=== PATIENT | male | born 2000 | race Caucasian/White ===

== ENCOUNTER 2020-08-22 12:32 | Inpatient (IN) | payer MEDICAID, OTHER ==
[~2020-08-22] VITALS: Ht 182.9 cm; Wt 71.3 kg
[2020-08-22 13:53] LABS: BASOPHILS % (AUTO) 0.4 % (0.0-2.0); EOSINOPHILS % (AUTO) 2.8 % (1.0-6.0); HEMATOCRIT 44.1 % (41-53); HEMOGLOBIN 15.1 g/dL (13.5-17.5); LYMPHOCYTES # (AUTO) 1.6 K/uL (1.0-4.8); MEAN CORPUSCULAR HEMOGLOBIN 30.6 pg (26.0-34.0); MEAN CORPUSCULAR HGB CONC 34.2 G/dL (31.0-37.0); MEAN CORPUSCULAR VOLUME 89 fL (80-100); MONOCYTES # (AUTO) 0.6 K/uL (0.1-1.0); MONOCYTES % (AUTO) 12.5 % (2.0-9.0); NEUTROPHILS # (AUTO) 2.4 K/uL (1.8-7.7); NEUTROPHILS % (AUTO) 50.3 % (40.0-70.0); PLATELET COUNT (AUTO) 196 K/uL (150-450); RED BLOOD CELL COUNT(AUTO) 4.94 MIL/uL (4.50-5.90); RED CELL DISTRIBUTION WIDTH 12.5 % (11.5-14.5)
[2020-08-22 13:57] LABS: ANION GAP 6 mmol/L (8-16); CALCIUM, TOTAL 8.9 mg/dL (8.8-10.5); CARBON DIOXIDE 33 mmol/L (22-29); CHLORIDE 101 mmol/L (98-107); CREATININE 1.03 mg/dL (0.60-1.30); GLOMERULAR FILTR. RATE CALC > 60 mL/min (>60); GLUCOSE,RANDOM 72 mg/dL (70-110); POTASSIUM 3.2 mmol/L (3.5-5.1); SODIUM SERUM 140 mmol/L (136-145); UREA NITROGEN, BLOOD 17 mg/dL (7-18)
[2020-08-22 14:02] LABS: ALANINE AMINOTRANSFERASE 34 U/L (12-78); ALBUMIN 4.1 g/dL (3.4-5.0); ALKALINE PHOSPHATASE 116 U/L (46-116); ASPARTATE AMINOTRANSFERASE 27 U/L (15-37); BILIRUBIN,TOTAL 0.4 mg/dL (0.1-1.0); TOTAL PROTEIN, SERUM 7.4 g/dL (6.4-8.2)
[2020-08-22 14:29] LABS: GLUCOSE,POINT OF CARE 109 MG/DL (70-110)
[2020-08-22 18:02] LABS: COVID AG,FIA SOURCE NASOPHARYNGEAL
[2020-08-22] MEDS: LORazepam 2 MG TABLET PO PRN (19:27)
[2020-08-23] MEDS ORDERED: MAGNESIUM HYDROXIDE SUSPENSION 30 ML UDCUP PO PRN (08:00)
[2020-08-23] MEDS ORDERED: DOCUSATE SODIUM 100 MG CAPSULE PO PRN (08:00)
[2020-08-23] MEDS ORDERED: GuaiFENesin/D-METHORPHAN [SUGAR-FREE] 200-20MG/10 ML SYRUP UDCUP PO PRN (08:00)
[2020-08-23] MEDS ORDERED: CloNIDine HCL 0.1 MG TABLET PO PRN (08:00)
[2020-08-23] MEDS ORDERED: ACETAMINOPHEN 325 MG TABLET PO PRN (08:00)
[2020-08-23] MEDS ORDERED: PETROLATUM,WHITE 28 GM JELLY TP PRN (08:00)
[2020-08-23] MEDS ORDERED: ALBUTEROL SULFATE HFA 90 MCG/PUFF 8 GM INHALER IH PRN (08:00)
[2020-08-23] MEDS ORDERED: NICOTINE 14 MG/24 HOUR PATCH TD PRN (08:00)
[2020-08-23] MEDS ORDERED: ONDANSETRON HCL 4 MG TABLET PO PRN (08:00)
[2020-08-23] MEDS ORDERED: LOPERAMIDE HCL 2 MG CAPSULE PO PRN (08:00)
[2020-08-23] MEDS ORDERED: IBUPROFEN 400 MG TABLET PO PRN (08:00)
[2020-08-23] MEDS ORDERED: MAG HYDROX/AL HYDROX/SIMETH ES 30 ML SUSPENSION UDCUP PO PRN (08:00)
[2020-08-23] MEDS: LORazepam 2 MG TABLET PO PRN ×2 (08:38→17:29)
[2020-08-23 08:49] LABS: AMPHET/METH SCREEN,URINE NEGATIVE (NEGATIVE); BARBITURATE SCREEN, URINE NEGATIVE (NEGATIVE); BENZODIAZEPINES SCREEN,URINE NEGATIVE (NEGATIVE); CANNABINOID SCREEN,URINE POSITIVE (NEGATIVE); COCAINE SCREEN,URINE NEGATIVE (NEGATIVE); METHADONE SCREEN, URINE NEGATIVE (NEGATIVE); OPIATE SCREEN,URINE NEGATIVE (NEGATIVE)
[2020-08-23 08:51] LABS: PHENCYCLIDINE SCREEN,URINE NEGATIVE (NEGATIVE)
[2020-08-23] MEDS ORDERED: DiphenhydrAMINE HCL 50 MG/ML VIAL IM ONE ×2 (09:15→18:45)
[2020-08-23] MEDS ORDERED: LORazepam 2 MG/ML VIAL IM ONE ×2 (09:15→18:45)
[2020-08-23] MEDS ORDERED: HALOPERIDOL LACTATE 5 MG/ML VIAL IM ONE ×2 (09:15→18:45)
[2020-08-23 11:08] LABS: GLUCOSE,POINT OF CARE 271 MG/DL (70-110)
[2020-08-23] MEDS ORDERED: GLUCAGON,HUMAN RECOMBINANT 1 MG VIAL IM PRN (15:45)
[2020-08-23 16:05] VITALS: BP 110/68
[2020-08-23] MEDS ORDERED: POTASSIUM CHLORIDE 20 MEQ ER TABLET PO ONE (16:15)
[2020-08-23] MEDS: HALOPERIDOL 5 MG TABLET PO PRN (16:51)
[2020-08-23] MEDS: INSULIN LISPRO 100 UNITS/ML SQ PRN (16:54)
[2020-08-23] MEDS: INSULIN GLARGINE,HUM.REC.ANLOG 100 UNITS/ML SQ SCH (21:21)
[2020-08-24 06:25] LABS: GLUCOMETER DEV NAME(LOC) BV3N.; GLUCOSE,POINT OF CARE 154 MG/DL (70-110)
[2020-08-24] MEDS: INSULIN LISPRO 100 UNITS/ML SQ PRN ×4 (06:41→21:09)
[2020-08-24] MEDS ORDERED: CloNIDine HCL 0.1 MG TABLET PO PRN (07:45)
[2020-08-24] MEDS ORDERED: MAG HYDROX/AL HYDROX/SIMETH ES 30 ML SUSPENSION UDCUP PO PRN (07:45)
[2020-08-24] MEDS ORDERED: PETROLATUM,WHITE 28 GM JELLY TP PRN (07:45)
[2020-08-24] MEDS ORDERED: ALBUTEROL SULFATE HFA 90 MCG/PUFF 8 GM INHALER IH PRN (07:45)
[2020-08-24] MEDS ORDERED: LOPERAMIDE HCL 2 MG CAPSULE PO PRN (07:45)
[2020-08-24] MEDS ORDERED: MAGNESIUM HYDROXIDE SUSPENSION 30 ML UDCUP PO PRN (07:45)
[2020-08-24] MEDS ORDERED: IBUPROFEN 400 MG TABLET PO PRN (07:45)
[2020-08-24] MEDS ORDERED: ONDANSETRON HCL 4 MG TABLET PO PRN (07:45)
[2020-08-24] MEDS ORDERED: ACETAMINOPHEN 325 MG TABLET PO PRN (07:45)
[2020-08-24] MEDS ORDERED: GuaiFENesin/D-METHORPHAN [SUGAR-FREE] 200-20MG/10 ML SYRUP UDCUP PO PRN (07:45)
[2020-08-24] MEDS ORDERED: DOCUSATE SODIUM 100 MG CAPSULE PO PRN (07:45)
[2020-08-24] MEDS: LORazepam 2 MG TABLET PO PRN ×4 (07:59→21:06)
[2020-08-24 08:20] VITALS: BP 154/68
[2020-08-24] MEDS: HALOPERIDOL 5 MG TABLET PO PRN ×2 (10:09→16:44)
[2020-08-24 11:24] LABS: GLUCOMETER DEV NAME(LOC) BV3N.; GLUCOSE,POINT OF CARE 257 MG/DL (70-110)
[2020-08-24] MEDS: QUEtiapine FUMARATE 200 MG TABLET PO SCH ×2 (12:04→21:06)
[2020-08-24 16:30] VITALS: BP 119/81
[2020-08-24 17:17] LABS: GLUCOMETER DEV NAME(LOC) BV3N.; GLUCOSE,POINT OF CARE 249 MG/DL (70-110)
[2020-08-24] MEDS: NICOTINE 14 MG/24 HOUR PATCH TD PRN (18:02)
[2020-08-24] MEDS: INSULIN GLARGINE,HUM.REC.ANLOG 100 UNITS/ML SQ SCH (21:09)
[2020-08-24] MEDS: ZOLPIDEM TARTRATE 10 MG TABLET PO PRN (21:34)
[2020-08-24 21:46] LABS: GLUCOMETER DEV NAME(LOC) BV3N.; GLUCOSE,POINT OF CARE 255 MG/DL (70-110)
[2020-08-25 06:08] VITALS: BP 115/64
[2020-08-25 06:32] LABS: GLUCOMETER DEV NAME(LOC) BV3N.; GLUCOSE,POINT OF CARE 235 MG/DL (70-110)
[2020-08-25] MEDS: INSULIN LISPRO 100 UNITS/ML SQ PRN (06:34)
[2020-08-25 08:50] VITALS: BP 142/65
[2020-08-25] MEDS: LORazepam 2 MG TABLET PO PRN ×3 (09:03→17:41)
[2020-08-25] MEDS: QUEtiapine FUMARATE 200 MG TABLET PO SCH ×2 (09:03→20:35)
[2020-08-25 09:46] LABS: GLUCOMETER DEV NAME(LOC) BV3N.; GLUCOSE,POINT OF CARE 427 MG/DL (70-110)
[2020-08-25] MEDS ORDERED: INSULIN LISPRO 100 UNITS/ML SQ ONE (10:00)
[2020-08-25] MEDS ORDERED: DEXTROSE 50%-WATER 25 GM/50 ML SYRINGE IVP PRN (10:00)
[2020-08-25] MEDS ORDERED: INSULIN LISPRO 100 UNITS/ML SQ PRN (10:00)
[2020-08-25] MEDS: INSULIN GLARGINE,HUM.REC.ANLOG 100 UNITS/ML SQ SCH ×2 (10:12→16:44)
[2020-08-25 12:01] LABS: GLUCOMETER DEV NAME(LOC) BV3N.; GLUCOSE,POINT OF CARE 67 MG/DL (70-110)
[2020-08-25] MEDS: HALOPERIDOL 5 MG TABLET PO PRN ×2 (13:08→17:24)
[2020-08-25] MEDS: NICOTINE 14 MG/24 HOUR PATCH TD PRN (13:59)
[2020-08-25 14:21] LABS: GLUCOMETER DEV NAME(LOC) BV3N.; GLUCOSE,POINT OF CARE 44 MG/DL (70-110)
[2020-08-25 14:34] LABS: GLUCOMETER DEV NAME(LOC) BV3N.; GLUCOSE,POINT OF CARE 72 MG/DL (70-110)
[2020-08-25 16:09] VITALS: BP 105/68
[2020-08-25 16:38] LABS: GLUCOMETER DEV NAME(LOC) BV3N.; GLUCOSE,POINT OF CARE 85 MG/DL (70-110)
[2020-08-25 20:03] LABS: GLUCOMETER DEV NAME(LOC) BV3N.; GLUCOSE,POINT OF CARE 185 MG/DL (70-110)
[2020-08-26] MEDS ORDERED: GLUCAGON,HUMAN RECOMBINANT 1 MG VIAL IM PRN (02:00)
[2020-08-26 04:56] VITALS: BP 124/72
[2020-08-26 06:03] LABS: GLUCOMETER DEV NAME(LOC) BV3N.; GLUCOSE,POINT OF CARE 155 MG/DL (70-110)
[2020-08-26] MEDS: INSULIN LISPRO 100 UNITS/ML SQ PRN ×4 (06:14→21:00)
[2020-08-26] MEDS: LORazepam 2 MG TABLET PO PRN ×2 (07:50→16:27)
[2020-08-26] MEDS: QUEtiapine FUMARATE 200 MG TABLET PO SCH ×2 (08:01→20:55)
[2020-08-26] MEDS: INSULIN GLARGINE,HUM.REC.ANLOG 100 UNITS/ML SQ SCH ×2 (08:07→16:46)
[2020-08-26 08:19] LABS: GLUCOMETER DEV NAME(LOC) BV3N.; GLUCOSE,POINT OF CARE 101 MG/DL (70-110)
[2020-08-26 08:44] VITALS: BP 132/79
[2020-08-26] MEDS: HALOPERIDOL 5 MG TABLET PO PRN ×2 (09:33→16:27)
[2020-08-26 11:39] LABS: GLUCOMETER DEV NAME(LOC) BV3N.; GLUCOSE,POINT OF CARE 352 MG/DL (70-110)
[2020-08-26 16:26] VITALS: BP 125/75
[2020-08-26 17:00] LABS: GLUCOMETER DEV NAME(LOC) BV3N.; GLUCOSE,POINT OF CARE 233 MG/DL (70-110)
[2020-08-26] MEDS ORDERED: DiphenhydrAMINE HCL 50 MG/ML VIAL ONE (19:07)
[2020-08-26] MEDS ORDERED: HALOPERIDOL LACTATE 5 MG/ML VIAL ONE (19:07)
[2020-08-26] MEDS ORDERED: LORazepam 2 MG/ML VIAL ONE (19:07)
[2020-08-26] MEDS ORDERED: HALOPERIDOL LACTATE 5 MG/ML VIAL IM ONE (19:30)
[2020-08-26] MEDS ORDERED: LORazepam 2 MG/ML VIAL IM ONE (19:30)
[2020-08-26] MEDS ORDERED: DiphenhydrAMINE HCL 50 MG/ML VIAL IM ONE (19:30)
[2020-08-26 21:19] LABS: GLUCOMETER DEV NAME(LOC) BV3N.; GLUCOSE,POINT OF CARE 173 MG/DL (70-110)
[2020-08-27 03:41] VITALS: BP 132/80
[2020-08-27 06:22] LABS: GLUCOMETER DEV NAME(LOC) BV3N.; GLUCOSE,POINT OF CARE 89 MG/DL (70-110)
[2020-08-27] MEDS: HALOPERIDOL 5 MG TABLET PO PRN ×3 (08:00→16:44)
[2020-08-27 08:17] LABS: GLUCOMETER DEV NAME(LOC) BV3N.; GLUCOSE,POINT OF CARE 325 MG/DL (70-110)
[2020-08-27] MEDS: QUEtiapine FUMARATE 200 MG TABLET PO SCH (08:25)
[2020-08-27] MEDS: INSULIN GLARGINE,HUM.REC.ANLOG 100 UNITS/ML SQ SCH ×2 (08:25→16:51)
[2020-08-27 09:23] VITALS: BP 122/67
[2020-08-27] MEDS: LORazepam 2 MG TABLET PO PRN ×3 (11:09→21:05)
[2020-08-27] MEDS: INSULIN LISPRO 100 UNITS/ML SQ PRN ×3 (11:27→21:08)
[2020-08-27 11:33] LABS: GLUCOMETER DEV NAME(LOC) BV3N.; GLUCOSE,POINT OF CARE 316 MG/DL (70-110)
[2020-08-27 16:29] VITALS: BP 126/81
[2020-08-27 19:17] LABS: GLUCOMETER DEV NAME(LOC) BV3N.; GLUCOSE,POINT OF CARE 133 MG/DL (70-110)
[2020-08-27] MEDS ORDERED: QUEtiapine FUMARATE 200 MG TABLET PO SCH (21:00)
[2020-08-27] MEDS: ZOLPIDEM TARTRATE 10 MG TABLET PO PRN (21:05)
[2020-08-27 21:17] LABS: GLUCOMETER DEV NAME(LOC) BV3N.; GLUCOSE,POINT OF CARE 339 MG/DL (70-110)
[2020-08-28 03:49] VITALS: BP 123/78
[2020-08-28 06:14] LABS: GLUCOMETER DEV NAME(LOC) BV3N.; GLUCOSE,POINT OF CARE 207 MG/DL (70-110)
[2020-08-28] MEDS: INSULIN LISPRO 100 UNITS/ML SQ PRN ×3 (06:28→16:39)
[2020-08-28] MEDS: LORazepam 2 MG TABLET PO PRN ×2 (08:00→12:00)
[2020-08-28] MEDS: INSULIN GLARGINE,HUM.REC.ANLOG 100 UNITS/ML SQ SCH ×2 (08:37→16:37)
[2020-08-28 08:47] VITALS: BP 120/60
[2020-08-28] MEDS: HALOPERIDOL 5 MG TABLET PO PRN (09:20)
[2020-08-28 09:50] LABS: GLUCOMETER DEV NAME(LOC) BV3N.; GLUCOSE,POINT OF CARE 196 MG/DL (70-110)
[2020-08-28 11:24] LABS: GLUCOMETER DEV NAME(LOC) BV3N.; GLUCOSE,POINT OF CARE 225 MG/DL (70-110)
[2020-08-28 13:18] LABS: GLUCOMETER DEV NAME(LOC) BV3N.; GLUCOSE,POINT OF CARE 381 MG/DL (70-110)
[2020-08-28] MEDS ORDERED: QUET200T PO (14:09)
[2020-08-28] MEDS ORDERED: INSLAN SQ (14:10)
[2020-08-28 15:21] LABS: GLUCOMETER DEV NAME(LOC) BV3N.; GLUCOSE,POINT OF CARE 85 MG/DL (70-110)
[2020-08-28 16:12] VITALS: BP 125/79
[2020-08-28 19:27] LABS: GLUCOMETER DEV NAME(LOC) BV3N.; GLUCOSE,POINT OF CARE 395 MG/DL (70-110)
== END 2020-08-28 17:09 | disposition home or self-care (01) | DRG 750 ==
LOC: EMS 12:36 → B3A 08-23 12:25
DX: F25.0 Schizoaffective disorder, bipolar type (principal); R45.851 Suicidal ideations; E11.65 Type 2 diabetes mellitus with hyperglycemia; K90.0 Celiac disease; Z20.822 Contact with and (suspected) exposure to COVID-19; E87.6 Hypokalemia; F19.10 Other psychoactive substance abuse, uncomplicated; Z72.89 Other problems related to lifestyle; F12.10 Cannabis abuse, uncomplicated
CPT/HCPCS: 80053; 82962; 83036; 85025; 99285; G0480; J1200; J1630; J1815; J2060

== ENCOUNTER 2020-09-05 09:54 | Inpatient (IN) | payer MEDICAID, OTHER ==
[~2020-09-05] VITALS: Ht 175.3 cm; Wt 74.4 kg
[~2020-09-05 09:54] MED LIST: INSLAN SQ; QUET200T PO
[2020-09-05 10:24] LABS: BASOPHILS % (AUTO) 0.3 % (0.0-2.0); EOSINOPHILS % (AUTO) 3.4 % (1.0-6.0); HEMATOCRIT 43.8 % (41-53); HEMOGLOBIN 14.7 g/dL (13.5-17.5); LYMPHOCYTES # (AUTO) 1.3 K/uL (1.0-4.8); LYMPHOCYTES % (AUTO) 28.2 % (22.0-44.0); MEAN CORPUSCULAR HEMOGLOBIN 30.3 pg (26.0-34.0); MEAN CORPUSCULAR HGB CONC 33.5 G/dL (31.0-37.0); MEAN CORPUSCULAR VOLUME 91 fL (80-100); MONOCYTES # (AUTO) 0.3 K/uL (0.1-1.0); MONOCYTES % (AUTO) 6.5 % (2.0-9.0); NEUTROPHILS # (AUTO) 2.9 K/uL (1.8-7.7); NEUTROPHILS % (AUTO) 61.6 % (40.0-70.0); PLATELET COUNT (AUTO) 208 K/uL (150-450); RED BLOOD CELL COUNT(AUTO) 4.84 MIL/uL (4.50-5.90); RED CELL DISTRIBUTION WIDTH 12.6 % (11.5-14.5)
[2020-09-05 10:33] LABS: ANION GAP 8 mmol/L (8-16); CALCIUM, TOTAL 9.1 mg/dL (8.8-10.5); CARBON DIOXIDE 26 mmol/L (22-29); CHLORIDE 98 mmol/L (98-107); CREATININE 0.85 mg/dL (0.60-1.30); GLOMERULAR FILTR. RATE CALC > 60 mL/min (>60); GLUCOSE,RANDOM 319 mg/dL (70-110); POTASSIUM 4.4 mmol/L (3.5-5.1); SODIUM SERUM 132 mmol/L (136-145); UREA NITROGEN, BLOOD 20 mg/dL (7-18)
[2020-09-05 10:39] LABS: ALANINE AMINOTRANSFERASE 33 U/L (12-78); ALBUMIN 3.9 g/dL (3.4-5.0); ALKALINE PHOSPHATASE 124 U/L (46-116); ASPARTATE AMINOTRANSFERASE 18 U/L (15-37); BILIRUBIN,TOTAL 0.2 mg/dL (0.1-1.0); TOTAL PROTEIN, SERUM 6.9 g/dL (6.4-8.2)
[2020-09-05 10:55] LABS: AMPHET/METH SCREEN,URINE NEGATIVE (NEGATIVE); BARBITURATE SCREEN, URINE NEGATIVE (NEGATIVE); BENZODIAZEPINES SCREEN,URINE NEGATIVE (NEGATIVE); CANNABINOID SCREEN,URINE POSITIVE (NEGATIVE); COCAINE SCREEN,URINE NEGATIVE (NEGATIVE); METHADONE SCREEN, URINE NEGATIVE (NEGATIVE); OPIATE SCREEN,URINE NEGATIVE (NEGATIVE)
[2020-09-05 10:56] LABS: PHENCYCLIDINE SCREEN,URINE NEGATIVE (NEGATIVE)
[2020-09-05] MEDS ORDERED: BACITRACIN 0.9 GM PACKET OINTMENT TP ONE (11:15)
[2020-09-05 12:53] LABS: GLUCOSE,POINT OF CARE 477 MG/DL (70-110)
[2020-09-05] MEDS ORDERED: INSULIN REGULAR, HUMAN 100 UNITS/ML SQ ONE (13:45)
[2020-09-05 14:52] LABS: COVID AG,FIA SOURCE NASOPHARYNGEAL
[2020-09-05] MEDS ORDERED: DiphenhydrAMINE HCL 50 MG/ML VIAL ONE (15:38)
[2020-09-05] MEDS ORDERED: LORazepam 2 MG/ML VIAL ONE (15:38)
[2020-09-05] MEDS ORDERED: HALOPERIDOL LACTATE 5 MG/ML VIAL ONE (15:38)
[2020-09-05 15:40] LABS: GLUCOSE,POINT OF CARE 219 MG/DL (70-110)
[2020-09-05] MEDS ORDERED: HALOPERIDOL LACTATE 5 MG/ML VIAL IM ONE (15:45)
[2020-09-05] MEDS ORDERED: LORazepam 2 MG/ML VIAL IM ONE (15:45)
[2020-09-05] MEDS ORDERED: DiphenhydrAMINE HCL 50 MG/ML VIAL IM ONE (15:45)
[2020-09-05] MEDS ORDERED: DEXTROSE 50%-WATER 25 GM/50 ML SYRINGE IVP PRN (17:00)
[2020-09-05 17:12] LABS: GLUCOMETER DEV NAME(LOC) 3E.C; GLUCOSE,POINT OF CARE 50 MG/DL (70-110)
[2020-09-05 17:26] VITALS: BP 105/61
[2020-09-05 17:27] LABS: GLUCOMETER DEV NAME(LOC) 3E.C; GLUCOSE,POINT OF CARE 95 MG/DL (70-110)
[2020-09-05] MEDS ORDERED: INSULIN LISPRO 100 UNITS/ML SQ ONE (20:45)
[2020-09-05 20:47] LABS: GLUCOMETER DEV NAME(LOC) 3E.C; GLUCOSE,POINT OF CARE 356 MG/DL (70-110)
[2020-09-05 22:26] LABS: GLUCOMETER DEV NAME(LOC) 3E.C; GLUCOSE,POINT OF CARE 157 MG/DL (70-110)
[2020-09-06] MEDS: INSULIN LISPRO 100 UNITS/ML SQ PRN ×4 (06:59→21:01)
[2020-09-06 07:00] LABS: FREE T4 (FREE THYROXINE) 1.08 ng/dL (0.76-1.46); THYROID STIMULATING HORMONE 0.91 uIU/mL (0.36-3.74)
[2020-09-06 07:09] LABS: GLUCOMETER DEV NAME(LOC) 3E.C; GLUCOSE,POINT OF CARE 309 MG/DL (70-110)
[2020-09-06 08:33] VITALS: BP 125/61
[2020-09-06] MEDS ORDERED: INSULIN GLARGINE,HUM.REC.ANLOG 100 UNITS/ML SQ SCH (09:00)
[2020-09-06] MEDS: BACITRACIN 28 GM OINTMENT TP SCH ×2 (09:13→16:47)
[2020-09-06] MEDS: LORazepam 2 MG TABLET PO PRN ×2 (09:32→14:14)
[2020-09-06] MEDS: HALOPERIDOL 5 MG TABLET PO PRN ×2 (10:14→14:14)
[2020-09-06] MEDS: NICOTINE 14 MG/24 HOUR PATCH TD SCH (10:15)
[2020-09-06 12:41] LABS: GLUCOMETER DEV NAME(LOC) 3E.C; GLUCOSE,POINT OF CARE 354 MG/DL (70-110)
[2020-09-06] MEDS: OLANZapine 5 MG TABLET PO SCH ×2 (13:13→16:47)
[2020-09-06 14:17] LABS: GLUCOMETER DEV NAME(LOC) 3E.C; GLUCOSE,POINT OF CARE 64 MG/DL (70-110)
[2020-09-06 16:44] LABS: GLUCOMETER DEV NAME(LOC) 3E.C; GLUCOSE,POINT OF CARE 218 MG/DL (70-110)
[2020-09-06] MEDS: QUEtiapine FUMARATE 200 MG TABLET PO SCH (20:59)
[2020-09-06 21:10] LABS: GLUCOMETER DEV NAME(LOC) 3E.C; GLUCOSE,POINT OF CARE 155 MG/DL (70-110)
[2020-09-07] MEDS: ZOLPIDEM TARTRATE 10 MG TABLET PO PRN (02:34)
[2020-09-07] MEDS: HALOPERIDOL 5 MG TABLET PO PRN ×3 (05:45→14:02)
[2020-09-07] MEDS: LORazepam 2 MG TABLET PO PRN ×3 (05:45→14:02)
[2020-09-07 06:49] LABS: GLUCOMETER DEV NAME(LOC) 3E.C; GLUCOSE,POINT OF CARE 196 MG/DL (70-110)
[2020-09-07] MEDS: INSULIN LISPRO 100 UNITS/ML SQ PRN ×3 (07:05→16:58)
[2020-09-07 08:00] VITALS: BP 132/73
[2020-09-07] MEDS: INSULIN GLARGINE,HUM.REC.ANLOG 100 UNITS/ML SQ SCH (08:24)
[2020-09-07] MEDS: OLANZapine 5 MG TABLET PO SCH ×2 (08:25→16:58)
[2020-09-07] MEDS: NICOTINE 14 MG/24 HOUR PATCH TD SCH (08:25)
[2020-09-07 12:36] LABS: GLUCOMETER DEV NAME(LOC) 3E.C; GLUCOSE,POINT OF CARE 332 MG/DL (70-110)
[2020-09-07] MEDS: BACITRACIN 28 GM OINTMENT TP SCH ×2 (13:41→19:31)
[2020-09-07 16:16] LABS: GLUCOMETER DEV NAME(LOC) 3E.C; GLUCOSE,POINT OF CARE 184 MG/DL (70-110)
[2020-09-07 16:17] VITALS: BP 118/79
[2020-09-07 16:18] VITALS: BP 118/79
[2020-09-07] MEDS: QUEtiapine FUMARATE 200 MG TABLET PO SCH (20:47)
[2020-09-07 21:06] LABS: GLUCOMETER DEV NAME(LOC) 3E.C; GLUCOSE,POINT OF CARE 126 MG/DL (70-110)
[2020-09-08] MEDS: ZOLPIDEM TARTRATE 10 MG TABLET PO PRN (00:51)
[2020-09-08] MEDS: LORazepam 2 MG TABLET PO PRN ×2 (02:31→15:29)
[2020-09-08] MEDS: HALOPERIDOL 5 MG TABLET PO PRN ×2 (02:31→15:30)
[2020-09-08] MEDS: INSULIN LISPRO 100 UNITS/ML SQ PRN ×4 (06:38→20:26)
[2020-09-08 06:42] LABS: GLUCOMETER DEV NAME(LOC) 3E.C; GLUCOSE,POINT OF CARE 252 MG/DL (70-110)
[2020-09-08 08:00] VITALS: BP 106/68
[2020-09-08] MEDS: OLANZapine 5 MG TABLET PO SCH ×2 (08:17→16:17)
[2020-09-08] MEDS: INSULIN GLARGINE,HUM.REC.ANLOG 100 UNITS/ML SQ SCH (08:20)
[2020-09-08] MEDS: NICOTINE 14 MG/24 HOUR PATCH TD SCH (08:26)
[2020-09-08] MEDS: BACITRACIN 28 GM OINTMENT TP SCH ×2 (08:27→16:17)
[2020-09-08] MEDS ORDERED: DiphenhydrAMINE HCL 50 MG/ML VIAL IM ONE (10:00)
[2020-09-08] MEDS ORDERED: LORazepam 2 MG/ML VIAL IM ONE (10:00)
[2020-09-08] MEDS ORDERED: HALOPERIDOL LACTATE 5 MG/ML VIAL IM ONE (10:00)
[2020-09-08] MEDS ORDERED: DiphenhydrAMINE HCL 50 MG/ML VIAL ONE (10:03)
[2020-09-08 12:43] LABS: GLUCOMETER DEV NAME(LOC) 3E.C; GLUCOSE,POINT OF CARE 369 MG/DL (70-110)
[2020-09-08 15:57] LABS: GLUCOMETER DEV NAME(LOC) 3E.C; GLUCOSE,POINT OF CARE 236 MG/DL (70-110)
[2020-09-08 17:17] LABS: GLUCOMETER DEV NAME(LOC) 3E.C; GLUCOSE,POINT OF CARE 254 MG/DL (70-110)
[2020-09-08 17:33] VITALS: BP 136/76
[2020-09-08] MEDS: QUEtiapine FUMARATE 200 MG TABLET PO SCH (20:25)
[2020-09-08 20:35] LABS: GLUCOMETER DEV NAME(LOC) 3E.C; GLUCOSE,POINT OF CARE 212 MG/DL (70-110)
[2020-09-09] MEDS: HALOPERIDOL 5 MG TABLET PO PRN ×4 (06:21→18:39)
[2020-09-09] MEDS: LORazepam 2 MG TABLET PO PRN ×3 (06:21→14:39)
[2020-09-09 06:22] LABS: GLUCOMETER DEV NAME(LOC) 3E.C; GLUCOSE,POINT OF CARE 264 MG/DL (70-110)
[2020-09-09] MEDS: INSULIN LISPRO 100 UNITS/ML SQ PRN ×3 (06:43→21:02)
[2020-09-09 08:00] VITALS: BP 148/101
[2020-09-09] MEDS: OLANZapine 5 MG TABLET PO SCH ×2 (08:03→16:07)
[2020-09-09] MEDS: INSULIN GLARGINE,HUM.REC.ANLOG 100 UNITS/ML SQ SCH (08:04)
[2020-09-09] MEDS: NICOTINE 14 MG/24 HOUR PATCH TD SCH (08:05)
[2020-09-09] MEDS: BACITRACIN 28 GM OINTMENT TP SCH ×2 (08:06→16:11)
[2020-09-09] MEDS ORDERED: INSULIN LISPRO 100 UNITS/ML SQ ONE (12:15)
[2020-09-09 12:21] LABS: GLUCOMETER DEV NAME(LOC) 3E.C; GLUCOSE,POINT OF CARE 529 MG/DL (70-110)
[2020-09-09 14:05] LABS: GLUCOMETER DEV NAME(LOC) 3E.C; GLUCOSE,POINT OF CARE 408 MG/DL (70-110)
[2020-09-09 14:11] VITALS: BP 136/82
[2020-09-09] MEDS ORDERED: DEXTROSE 50%-WATER 25 GM/50 ML SYRINGE IVP PRN (14:30)
[2020-09-09 14:43] LABS: GLUCOMETER DEV NAME(LOC) 3E.C; GLUCOSE,POINT OF CARE 262 MG/DL (70-110)
[2020-09-09 14:43] LABS: GLUCOMETER DEV NAME(LOC) 3E.C; GLUCOSE,POINT OF CARE 304 MG/DL (70-110)
[2020-09-09 16:09] LABS: ANION GAP 7 mmol/L (8-16); CALCIUM, TOTAL 9.1 mg/dL (8.8-10.5); CARBON DIOXIDE 28 mmol/L (22-29); CHLORIDE 102 mmol/L (98-107); CREATININE 0.96 mg/dL (0.60-1.30); GLOMERULAR FILTR. RATE CALC > 60 mL/min (>60); GLUCOSE,RANDOM 128 mg/dL (70-110); POTASSIUM 3.7 mmol/L (3.5-5.1); SODIUM SERUM 137 mmol/L (136-145); UREA NITROGEN, BLOOD 20 mg/dL (7-18)
[2020-09-09 16:21] LABS: GLUCOMETER DEV NAME(LOC) 3E.C; GLUCOSE,POINT OF CARE 118 MG/DL (70-110)
[2020-09-09 17:00] VITALS: BP 118/59
[2020-09-09 18:52] VITALS: BP 118/59
[2020-09-09] MEDS: QUEtiapine FUMARATE 200 MG TABLET PO SCH (20:52)
[2020-09-09 21:08] LABS: GLUCOMETER DEV NAME(LOC) 3E.C; GLUCOSE,POINT OF CARE 354 MG/DL (70-110)
[2020-09-09 22:49] LABS: GLUCOMETER DEV NAME(LOC) 3E.C; GLUCOSE,POINT OF CARE 198 MG/DL (70-110)
[2020-09-09] MEDS: ZOLPIDEM TARTRATE 10 MG TABLET PO PRN (23:21)
[2020-09-10] MEDS: LORazepam 2 MG TABLET PO PRN ×2 (05:41→13:57)
[2020-09-10] MEDS: HALOPERIDOL 5 MG TABLET PO PRN ×2 (05:41→13:57)
[2020-09-10 06:02] LABS: GLUCOMETER DEV NAME(LOC) 3E.C; GLUCOSE,POINT OF CARE 283 MG/DL (70-110)
[2020-09-10] MEDS: INSULIN LISPRO 100 UNITS/ML SQ PRN ×4 (06:48→21:00)
[2020-09-10] MEDS: OLANZapine 5 MG TABLET PO SCH ×2 (07:50→15:53)
[2020-09-10] MEDS: BACITRACIN 28 GM OINTMENT TP SCH ×2 (07:51→15:54)
[2020-09-10] MEDS: NICOTINE 14 MG/24 HOUR PATCH TD SCH (07:51)
[2020-09-10] MEDS ORDERED: INSULIN GLARGINE,HUM.REC.ANLOG 100 UNITS/ML SQ SCH (09:00)
[2020-09-10 09:11] VITALS: BP 110/74
[2020-09-10 10:18] LABS: GLUCOMETER DEV NAME(LOC) 3E.C; GLUCOSE,POINT OF CARE 323 MG/DL (70-110)
[2020-09-10 10:48] LABS: GLUCOMETER DEV NAME(LOC) 3E.C; GLUCOSE,POINT OF CARE 360 MG/DL (70-110)
[2020-09-10 13:16] LABS: GLUCOMETER DEV NAME(LOC) 3E.C; GLUCOSE,POINT OF CARE 226 MG/DL (70-110)
[2020-09-10 16:10] LABS: GLUCOMETER DEV NAME(LOC) 3E.C; GLUCOSE,POINT OF CARE 425 MG/DL (70-110)
[2020-09-10] MEDS ORDERED: INSULIN LISPRO 100 UNITS/ML SQ ONE (16:15)
[2020-09-10 17:00] VITALS: BP 134/69
[2020-09-10 19:42] LABS: GLUCOMETER DEV NAME(LOC) 3E.C; GLUCOSE,POINT OF CARE 219 MG/DL (70-110)
[2020-09-10] MEDS: QUEtiapine FUMARATE 200 MG TABLET PO SCH (20:51)
[2020-09-10 21:10] LABS: GLUCOMETER DEV NAME(LOC) 3E.C; GLUCOSE,POINT OF CARE 209 MG/DL (70-110)
[2020-09-11] MEDS: ZOLPIDEM TARTRATE 10 MG TABLET PO PRN (00:04)
[2020-09-11 06:39] LABS: GLUCOMETER DEV NAME(LOC) 3E.C; GLUCOSE,POINT OF CARE 339 MG/DL (70-110)
[2020-09-11] MEDS: INSULIN LISPRO 100 UNITS/ML SQ PRN ×5 (06:47→21:19)
[2020-09-11] MEDS: LORazepam 2 MG TABLET PO PRN ×2 (08:02→13:06)
[2020-09-11] MEDS: OLANZapine 5 MG TABLET PO SCH ×2 (08:02→16:28)
[2020-09-11] MEDS: HALOPERIDOL 5 MG TABLET PO PRN ×2 (08:02→13:06)
[2020-09-11] MEDS: NICOTINE 14 MG/24 HOUR PATCH TD SCH (08:06)
[2020-09-11 08:40] VITALS: BP 120/63
[2020-09-11] MEDS: BACITRACIN 28 GM OINTMENT TP SCH ×2 (09:14→16:28)
[2020-09-11] MEDS: INSULIN GLARGINE,HUM.REC.ANLOG 100 UNITS/ML SQ SCH ×2 (09:15→17:36)
[2020-09-11 11:30] LABS: GLUCOMETER DEV NAME(LOC) 3E.C; GLUCOSE,POINT OF CARE 170 MG/DL (70-110)
[2020-09-11 16:10] VITALS: BP 122/63
[2020-09-11 17:24] LABS: GLUCOMETER DEV NAME(LOC) 3E.I 2; GLUCOSE,POINT OF CARE 442 MG/DL (70-110)
[2020-09-11 19:58] LABS: GLUCOMETER DEV NAME(LOC) 3E.I 2; GLUCOSE,POINT OF CARE 343 MG/DL (70-110)
[2020-09-11] MEDS: QUEtiapine FUMARATE 200 MG TABLET PO SCH (20:21)
[2020-09-11 21:24] LABS: GLUCOMETER DEV NAME(LOC) 3E.I 2; GLUCOSE,POINT OF CARE 273 MG/DL (70-110)
[2020-09-12] MEDS: LORazepam 2 MG TABLET PO PRN ×2 (03:24→08:26)
[2020-09-12 03:31] VITALS: BP 118/70
[2020-09-12] MEDS: HALOPERIDOL 5 MG TABLET PO PRN ×2 (03:58→08:26)
[2020-09-12 06:26] LABS: GLUCOMETER DEV NAME(LOC) 3E.I 2; GLUCOSE,POINT OF CARE 346 MG/DL (70-110)
[2020-09-12] MEDS: INSULIN LISPRO 100 UNITS/ML SQ PRN ×2 (07:01→11:11)
[2020-09-12 08:15] VITALS: BP 114/64
[2020-09-12] MEDS: OLANZapine 5 MG TABLET PO SCH (08:26)
[2020-09-12] MEDS: INSULIN GLARGINE,HUM.REC.ANLOG 100 UNITS/ML SQ SCH (08:52)
[2020-09-12] MEDS: NICOTINE 14 MG/24 HOUR PATCH TD SCH (08:53)
[2020-09-12] MEDS: BACITRACIN 28 GM OINTMENT TP SCH (08:53)
[2020-09-12] MEDS ORDERED: OLAN5TAB52 PO (10:31)
[2020-09-12 11:22] LABS: COVID AG,FIA SOURCE NASOPHARYNGEAL
[2020-09-12 11:26] LABS: GLUCOMETER DEV NAME(LOC) 3E.I 2; GLUCOSE,POINT OF CARE 397 MG/DL (70-110)
== END 2020-09-12 12:30 | disposition home or self-care (01) | DRG 750 ==
LOC: EMS 10:00 → 3EC 16:11 → 3EI 09-11 14:36
PROVIDERS: ADMIT Psychiatry & Neurology Child & Adolescent Psychiatry; ATTEND Psychiatry & Neurology Child & Adolescent Psychiatry
DX: F20.0 Paranoid schizophrenia (principal); E10.65 Type 1 diabetes mellitus with hyperglycemia; R45.851 Suicidal ideations; F12.10 Cannabis abuse, uncomplicated; F31.9 Bipolar disorder, unspecified; K90.0 Celiac disease; Z20.822 Contact with and (suspected) exposure to COVID-19; F99 Mental disorder, not otherwise specified; Z79.899 Other long term (current) drug therapy; Z88.8 Allergy status to other drugs, medicaments and biological substances; Z59.0 Homelessness; Z79.4 Long term (current) use of insulin; Z91.018 Allergy to other foods
CPT/HCPCS: 80048; 80053; 80061; 81005; 82962; 84439; 84443; 85025; 87081; 93005; 99291; G0480; J1200; J1630; J1815; J2060